=== PATIENT | female | born 1980 | race Caucasian/White ===

== ENCOUNTER 2017-01-14 23:36 | Inpatient (IN) | payer OTHER ==
--- NOTE | ~2017-01-14 | PN ---
Unit #: [id number] #: [id number] Patient: SHABNAM DEJESUS [id number] [facility] [address] [place] [address] [id number] I MR#: [id number] NAME: SHABNAM DEJESUS ROOM: 73 Age: 36 Sex: F Admission Date: 01/14/2017 : 1980 Attending Physician: Luciano Holland M.D. Admitting Physician: Luciano Holland M.D. Primary Care Physician: Lona Alvarez P.A.-C.. [facility] PROGRESS NOTES DATE January 16, 2017 DISCUSSION Ms. Dejesus is a 36-year-old white female, who was seen today and chart was reviewed and the case was discussed with the staff. She has been anxious, withdrawn, and rather seclusive to herself and though she reports that she slept really good and got some rest and feels better. MENTAL STATUS EXAMINATION Young white female, who was casually dressed with fair personal hygiene and appears to be in no acute distress or discomfort. The patient was awake and alert on interaction with intact orientation. Her mood was anxious with a congruent affect. The patient denies any suicidal or homicidal ideations, and also denies any auditory or visual hallucinations. Her insight and judgment remain slightly impaired. TREATMENT PLAN 1. We will continue her on her current medications and treatment protocol, and will monitor her response to the medications, and make further adjustments as needed. 2. We will continue to followup. Dictated by... Naty Warner/deep TD: 01/16/2017 07:57 JOB #: [id number] Unit #: [id number] #: [id number] Patient: SHABNAM DEJESUS [facility] PROGRESS NOTES Page 1 of 1 X Luciano Holland MD PROGRESS NOTE
--- NOTE | ~2017-01-14 | HP ---
Unit #: [id number] #: [id number] Patient: GRACIELA MARTINEZ [id number] [facility] [address] [place] [address] [id number] I MR#: [id number] NAME: GRACIELA MARTINEZ ROOM: [facility] Age: 36 Sex: F Admission Date: 01/14/2017 : 1980 Attending Physician: Luciano Holland M.D. Admitting Physician: Luciano Holland M.D. Primary Care Physician: Lona Alvarez P.A.-C.. HISTORY AND PHYSICAL HISTORY OF PRESENT ILLNESS Graciela is a 36 year old admitted to [facility] because of her drug use. She snorts heroin. PAST MEDICAL HISTORY 1. Long history of illicit substance abuse to include snorting heroin. 2. Obesity. 3. Fibromyalgia. PAST SURGICAL HISTORY 1. x3. 2. Breast augmentation. 3. Sinus x2. 4. Oral. ALLERGIES No known drug allergies. SOCIAL HISTORY Smokes less than 1 pack per day. Denies alcohol. Admits to a long history of illicit substance abuse to include snorting heroin. FAMILY HISTORY Medically noncontributory. REVIEW OF SYSTEMS CONSTITUTIONAL: No fever or chills. HEENT: Denies any sore throat, ear pain or runny nose. CARDIOVASCULAR: Denies chest pain, irregular heart rhythm or palpitations. CHEST: Denies shortness of breath or cough. No hemoptysis. GASTROINTESTINAL: Denies nausea, vomiting, diarrhea or chronic constipation. ENDOCRINE: Denies history of increased thirst or urination. No recent significant weight loss or gain. GENITOURINARY: Denies dysuria, frequency, or hematuria. SKIN: Denies any rashes. HEMATOLOGIC: Denies history of increased bleeding or bruising. MUSCULOSKELETAL: Denies any hot, swollen joints. No generalized muscle pain. NEUROLOGIC: Denies problems with vision or speech. No frequent, severe headaches. No numbness, tingling or weakness in any extremities. Denies loss of bladder or bowel control. Unit #: [id number] #: [id number] Patient: GRACIELA MARTINEZ CURRENT MEDICATIONS 1. Detox protocol. 2. Prozac 40 mg b.i.d. 3. Neurontin 800 mg q.i.d. 4. Proventil inhaler p.r.n. 5. Zanaflex 8 mg q. 8 hours p.r.n. 6. Lasix 40 mg daily. PHYSICAL EXAMINATION GENERAL: Alert, well-nourished, in no apparent distress. VITAL SIGNS: Blood pressure 136/92, heart rate 80, respirations 16, temperature 98.6. WEIGHT: 177. HEIGHT: 5 feet 3 inches. SKIN: Warm and dry without rash or lesion. HEENT: Normocephalic. TMs not viewed. Oral and nasal passages clear. Conjunctivae clear. PERRLA. EOMs intact. NECK: Supple without lymphadenopathy or thyromegaly. HEART: Regular rate and rhythm without murmur. LUNGS: Clear. ABDOMEN: Soft, nontender. : Not done. EXTREMITIES: No evidence of cyanosis, clubbing or edema. Moves all without focal deficit. NEUROLOGICAL: Grossly within normal limits. Cranial Nerves: II: Visual crews are intact. III, IV AND : Extraocular movements are intact. Pupils are equal, round and reactive to light. V: Facial sensation is grossly normal. VII: Facial movements and expression are normal. VIII: Auditory acuity grossly intact. IX, X: Uvula is midline. Phonation is normal. XI: Patient shrugs shoulders and turns head normally. XII: Tongue protrudes in the midline. Sensory and Motor Function: Sensory and motor sensation is grossly normal. Motor: moves all extremities well. Coordination: Gait is normal. Deep Tendon Reflexes: Intact. IMPRESSION Psychiatric admission. RECOMMENDATIONS PSYCHIATRIC: Per psychiatrist. MEDICAL: See no contraindications to participate in facility's activities. MEDICAL PROGNOSIS Good. MEDICAL CONDITION Stable. Dictated by... Ella Boston P.A.-C. for Naty Hernandez/aggie Unit #: [id number] #: [id number] Patient: GRACIELA MARTINEZ TD: 01/15/2017 20:00 JOB #: [id number] HISTORY AND PHYSICAL Page 1 of 1 X Ella Boston HISTORY AND PHYSICAL
--- NOTE | ~2017-01-14 | PA ---
Unit #: [id number] #: [id number] Patient: SHABNAM DEJESUS [id number] [facility] [address] [place] [address] [id number] I MR#: [id number] NAME: SHABNAM DEJESUS ROOM: P173 Age: 36 Sex: F Admission Date: 01/14/2017 : 1980 Date of Assessment: 01/15/2017 Attending Physician: Luciano Holland M.D. Admitting Physician: Luciano Holland M.D. Primary Care Physician: Lona Alvarez P.A.-C.. PSYCHIATRIC ASSESSMENT DATE OF SERVICE 01/15/2017. IDENTIFYING DATA Ms. Dejesus is a 36-year-old white female, who is a resident of [place], [place], and was brought to the hospital accompanied by her boyfriend. CHIEF COMPLAINT "I have been going to the group therapy and I'm still using pain pills." HISTORY OF PRESENT ILLNESS Ms. 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 She has had significant consequences because of her addiction and currently is enrolled in school and has completed three years of college and is trying to earn an associate degree and reports she currently lives with her boyfriend and 3 children. The patient's children are currently staying with father while she is getting treatment and reports increasing depression, anxiety, irritability, restlessness, feelings of hopelessness and helplessness, but denies any suicidal ideations, intent, or plan. SUBSTANCE ABUSE HISTORY The patient reports extensive history of substance abuse and dependence including alcohol, cannabis, cocaine, opioids, and currently opioids, particularly heroin has been her drug of choice. PAST PSYCHIATRIC HISTORY The patient has had a history of outpatient chemical dependency treatment at [facility], and review of the medical records indicate that she has been active in the outpatient treatment program, though still has not been able to achieve any significant sobriety. PAST MEDICAL HISTORY The patient's medical history is significant for congestive heart failure, fibromyalgia, and asthma. Unit #: [id number] #: [id number] Patient: SHABNAM DEJESUS ALLERGIES No known medication allergies. PERSONAL AND SOCIAL HISTORY A 36-year-old white female, who reports that she lives at home with her boyfriend and her 3 children and is employed at [employer] and reports fairly decent social support system at home. MENTAL STATUS EXAMINATION Young white female, who was casually dressed with fair personal hygiene, appears to be in no acute distress or discomfort. She was awake and alert on interaction with intact orientation to time, place, and person. Her mood was anxious and depressed with a congruent affect. Her speech was slow and restricted in content. She denies any suicidal or homicidal ideations and also denies any auditory or visual hallucinations. Her insight and judgment remain significantly impaired. DIAGNOSTIC IMPRESSION Psychiatric: Opioid dependence, moderate, in acute withdrawals and opioid-induced mood disorder. Medical: Congestive heart failure and asthma. Stressors: Moderate psychosocial stressors. TREATMENT PLAN 1. The patient has presented with a history of substance abuse and mood disorder and has been decompensating and will need inpatient hospitalization for safety and stabilization. We will start her back on her home medications. We will adjust the medications and monitor response. 2. Supportive therapy was provided to the patient. 3. Safe, structured, and nourishing environment will be provided. ESTIMATED LENGTH OF STAY 4 to 5 days. ABILITY TO HELP SELF Limited. WILLINGNESS TO HELP SELF The patient appears to be willing to help self. STRENGTHS 1. Communicative. 2. Cooperative. PROBLEMS 1. Chronic dysphoric symptoms. 2. Poor social support system. DISCHARGE CRITERIA This will be contingent upon the patient's ability to go through detox without having any significant withdrawal symptoms as well as her ability to stay safe to herself, particularly after discharge from the hospital. Dictated by... Luciano Holland M.D. IAA/modl Unit #: [id number] #: [id number] Patient: SHABNAM DEJESUS TD: 01/15/2017 10:55 JOB #: [id number] PSYCHIATRIC ASSESSMENT Page 1 of 1 X Luciano Holland MD PSYCHIATRIC ASSESSMENT
--- NOTE | ~2017-01-14 | DS ---
Unit #: [id number] #: [id number] [facility]: [facility]ESUS [id number] [facility] [address] [place] [address] [id number] I MR#: [id number] NAME: SHABNAM DEJESUS ROOM: 73 Age: 36 Sex: F Admission Date: 01/14/2017 : 1980 Discharge Date: 01/17/2017 Attending Physician: Luciano Holland M.D. Primary Care Physician: Lona Alvarez P.A.-C.. DISCHARGE SUMMARY IDENTIFYING DATA Ms. Dejesus is a 36-year-old white female with a history of substance abuse and mood disorder, who was self referred to the hospital. DISCHARGE DIAGNOSES Psychiatric: Opioid dependence, moderate and acute withdrawals; opioid-induced mood disorder. Medical: . Stressors: Moderate psychosocial stressors. HISTORY OF PRESENT ILLNESS Please see initial psychiatric evaluation for details. PAST PSYCHIATRIC HISTORY Please see initial psychiatric evaluation for details. PAST MEDICAL HISTORY Please see initial psychiatric evaluation for details. HOSPITAL COURSE The patient was admitted to the adult chemical dependency unit at [facility] and was oriented to the hospital environment. Routine p.r.n. medications were initiated and was started on the detox protocol and was closely monitored. She was taking medications regularly and was tolerating them fairly well and was able to show a decent therapeutic response to symptoms and was willing to pursue her treatment on an outpatient basis and as such, it was decided that she will be discharged and will continue treatment on an outpatient basis. DISCHARGE MEDICATIONS None. DISCHARGE CONDITION Stable. PROGNOSIS Fair. Dictated by... Luciano Holland M.D. Unit #: [id number] #: [id number] Patient: SHABNAM DEJESUS IAA/modl TD: 02/06/2017 04:43 JOB #: [id number] DISCHARGE SUMMARY Page 1 of 1 X Luciano Holland MD X DISCHARGE SUMMARY
--- NOTE | ~2017-01-14 | PN ---
Unit #: [id number] #: [id number] Patient: SHABNAM DEJESUS [id number] [facility] [address] [place] [address] [id number] I MR#: [id number] NAME: SHABNAM DEJESUS ROOM: [facility] Age: 36 Sex: F Admission Date: 01/14/2017 : 1980 Attending Physician: Luciano Holland M.D. Admitting Physician: Luciano Holland M.D. Primary Care Physician: Lona Alvarez P.A.-C.. [facility] PROGRESS NOTES DATE January 17, 2017 DISCUSSION Ms. Dejesus is a 36-year-old white female, who was seen today and chart was reviewed and the case was discussed with the staff. She has been anxious, withdrawn, and rather seclusive to herself and has been showing very poor insight into her situation and refusing to cooperate much with treatment and trying to mask and minimize her presentation. Meanwhile, no agitation or aggression has been reported. MENTAL STATUS EXAMINATION Young white female, who was casually dressed with fair personal hygiene and appears to be in no acute distress or discomfort. The patient was awake and alert on interaction with intact orientation. Her mood was anxious with a congruent affect. Her speech is slow and goal-directed. She denies any suicidal or homicidal ideations, and also denies any auditory or visual hallucinations. Her insight and judgment remain slightly impaired. TREATMENT PLAN 1. We will continue her on her current medications and treatment protocol, and will monitor her response to the medications, and make further adjustments as needed. 2. We will continue to followup. Dictated by... Naty Warner/deep TD: 01/17/2017 09:02 JOB #: [id number] Unit #: [id number] #: [id number] Patient: SHABNAM DEJESUS PROGRESS NOTES Page 1 of 1 X Luciano Holland MD PROGRESS NOTE
[2017-01-15 09:40] LABS: URINE APPEARANCE CLEAR; URINE BILIRUBIN NEG (NEG); URINE BLOOD NEG (NEG); URINE COLOR YELLOW; URINE GLUCOSE NEG (NEG); URINE KETONE NEG (NEG); URINE LEUKOCYTE ESTERASE NEG (NEG); URINE NITRATE NEG (NEG); URINE PROTEIN NEG (NEG); URINE UROBILINOGEN 0.2 MG/DL (NEG)
[2017-01-15 09:41] LABS: BASOPHIL# 0.1 X10e3 (0-0.3); BASOPHIL% 0.7 % (0-2.5); EOSINOPHIL# 0.8 X10e3 (0-0.7); EOSINOPHIL% 9.3 % (0.0-7.0); HEMATOCRIT 37.2 % (35.0-45.0); HEMOGLOBIN 12.1 gm/dL (12.0-16.0); LYMPHOCYTE# 2.9 X10e3 (1.0-3.5); MEAN CELL VOLUME 88.6 FL (83-96); MEAN CORPUSCULAR HEMOGLOBIN 28.7 PG (28-34); MEAN CORPUSCULAR HGB CONC 32.4 g/dL (30-36); MEAN PLATELET VOLUME 8.5 FL (6.5-11.5); MONOCYTE# 0.6 X10e3 (0-1.0); MONOCYTE% 6.3 % (3.0-12.0); NEUTROPHIL# 4.5 X10e3 (1.5-7.1); NEUTROPHIL% 50.7 % (40-75); PLATELET COUNT 313 X10e3 (140-420); RED CELL DISTRIBUTION WIDTH 16.4 % (11.0-15.5); WHITE BLOOD COUNT 8.9 X10e3 (4.0-10.5)
[2017-01-15 09:45] LABS: DIFF IND NO
[2017-01-15 09:51] LABS: ALBUMIN SERUM 3.9 g/dL (3.5-5.0); BILIRUBIN,TOTAL 0.5 mg/dL (0.2-2.0); BUN/CREATININE RATIO 17.5; CALCIUM SERUM 9.3 mg/dL (8.4-10.2); CREATININE SERUM 0.8 mg/dL (0.6-1.4); GLOM FILT RATE Estimated 93.6 mL/min (>60); POTASSIUM 4.7 mmol/L (3.5-5.1); PROTEIN TOTAL SERUM 6.7 g/dL (6.0-8.3)
[2017-01-15 09:56] LABS: AMPHETAMINE NEG (NEG); BARBITURATES NEG (NEG); BENZODIAZEPINES POS (NEG); COCAINE NEG (NEG); MARIJUANA NEG (NEG); OPIATES POS (NEG); TRICYCLIC ANTIDEPRESSANTS POS (NEG); U METHADONE NEG (NEG)
== END 2017-01-17 14:51 | disposition left against medical advice (07) | DRG 894 ==
LOC: P1E 23:36
PROVIDERS: Psychiatry & Neurology Psychiatry
PROC: HZ2ZZZZ Detoxification Services for Substance Abuse Treatment (ICD-10-PCS; principal; 2017-01-14)
DX: F11.23 Opioid dependence with withdrawal (principal); I50.9 Heart failure, unspecified; F11.24 Opioid dependence with opioid-induced mood disorder; J45.909 Unspecified asthma, uncomplicated; E66.9 Obesity, unspecified; F17.210 Nicotine dependence, cigarettes, uncomplicated
CPT/HCPCS: 80053; 80307; 81003; 84703; 85025; 86592